=== PATIENT | female | born 2000 | race American Indian/Alaskan Native ===

== ENCOUNTER 2019-10-20 09:12 | Emergency (ER) | payer SELFPAY ==
[2019-10-20 10:14] LABS: Basophils % (Auto) 0.3 % (0.0-1.8); Eosinophils # (Auto) 0.1 K/mm3 (0.0-0.4); Eosinophils % (Auto) 0.7 % (0.0-4.3); Hematocrit 39.4 % (30.3-42.9); Hemoglobin 13.5 gm/dl (10.1-14.3); Lymphocytes # (Auto) 1.5 K/mm3 (1.2-5.4); Lymphocytes % (Auto) 15.7 % (13.4-35.0); Mean Corpuscular HGB Conc 34 % (30-34); Mean Corpuscular Volume 80 fl (79-97); Monocytes # (Auto) 0.6 K/mm3 (0.0-0.8); Monocytes % (Auto) 6.5 % (0.0-7.3); Platelet Count 291 K/mm3 (140-440); Red Blood Count 4.92 M/mm3 (3.65-5.03); Red Cell Distribution Width 13.4 % (13.2-15.2)
--- NOTE | 2019-10-20 11:59 | Ultrasound Report ---
ULTRASOUND OBSTETRIC INDICATION / CLINICAL INFORMATION: pelvic pain and . Clinical Gestational Age (GA): Unknown. Patient has a positive urine test TECHNIQUE: Transabdominal. Transvaginal COMPARISON: None available. FINDINGS: At this time, there is no evidence for a gestational sac within the uterus. Endometrial stripe is of normal thickness measuring 2 mm. The uterus has a normal size and appearance. ADNEXA: Both ovaries are well-visualized. There is a 2.5 cm simple cyst within the left ovary. Both o varies are otherwise unremarkable. No adnexal mass identified. FREE FLUID: None. ADDITIONAL FINDINGS: None. IMPRESSION: 1. No sonographic evidence of IUP at this time. Please correlate with hCG levels as to whether pregna ncy should be visible. It may just be too early within the gestation for sonographic evidence of IUP. 2. 2.5 cm left ovarian simple cyst. Signer Name: Delilah Wilson MD Signed: 10/20/2019 11:55 AM Workstation Name: [id number]
[2019-10-20 13:25] LABS: Bacteria,Urine 1+ /HPF (Negative); Bilirubin,Urine NEG (Negative); Blood,Urine NEG (Negative); Color,Urine Yellow (Yellow); Mucus,Urine FEW /HPF; Protein,Urine <15 mg/dL mg/dL (Negative)
[2019-10-20] MEDS ORDERED: SODIUM CHLORIDE 0.9% 1000 ML 1,000 ML IV ONE ×2 (13:55→14:49)
--- NOTE | 2019-10-20 13:55 | Emergency Department Report ---
ED Female HPI - General Chief complaint: Vaginal Bleeding Stated complaint: BACK/ABD PAIN/FEVER Time Seen by Provider: 10/20/19 10:30 Source: patient Mode of arrival: Ambulatory Limitations: No Limitations - History of Present Illness MD Complaint: vaginal bleeding, pelvic pain -: Gradual Radiation: non-radiating Severity: mild Quality: dull Improves with: none Worsens with: none Are you Now?: No (thinks she had a positive test at home) Associated Symptoms: vaginal bleeding, abdominal pain. denies: fever/chills, dysuria, hematuria, rash, shortness of breath, syncope, weakness - Related Data Sexually active: Yes Allergies Allergy/AdvReac Type Severity Reaction Status Date / Time No Known Allergies Allergy Unverified 10/20/19 09:22 ED Review of Systems ROS: Stated complaint: BACK/ABD PAIN/FEVER Other details as noted in HPI Comment: All other systems reviewed and negative ED Past Medical Hx - Past Medical History Previous Medical History?: Yes Additional medical history: vaginal delivery 11-10-2015 - Surgical History Past Surgical History?: No - Social History Smoking Status: Never Smoker Substance Use Type: None ED Physical Exam - General Limitations: No Limitations General appearance: alert, in no apparent distress - Head Head exam: Present: atraumatic, normocephalic - Eye Eye exam: Present: normal appearance, PERRL, EOMI Pupils: Present: normal accommodation - ENT ENT exam: Present: normal exam, normal orophraynx, mucous membranes moist - Neck Neck exam: Present: normal inspection - Respiratory Respiratory exam: Present: normal lung sounds bilaterally. Absent: respiratory distress - Cardiovascular Cardiovascular Exam: Present: regular rate, normal rhythm. Absent: systolic murmur, diastolic murmur, rubs, gallop - GI/Abdominal GI/Abdominal exam: Present: soft, normal bowel sounds - Extremities Exam Extremities exam: Present: normal inspection, normal capillary refill. Absent: full ROM, tenderness - Back Exam Back exam: Present: normal inspection. Absent: CVA tenderness (R), CVA tenderness (L) - Neurological Exam Neurological exam: Present: alert, oriented X3, CN II-XII intact, normal gait - Psychiatric Psychiatric exam: Present: normal affect, normal mood - Skin Skin exam: Present: warm, dry, intact, normal color. Absent: rash ED Course Vital Signs 02/10/20/19 10/20/19 09:21 13:55 14:50 Temperature 99.6 F Pulse Rate 124 H 117 H 117 H Respiratory 16 18 Rate Blood Pressure 135/73 Blood Pressure 119/66 [Left] O2 Sat by Pulse 100 99 Oximetry 10/20/19 15:39 Temperature Pulse Rate 112 H Respiratory 20 Rate Blood Pressure Blood Pressure [Left] O2 Sat by Pulse 100 Oximetry ED Medical Decision Making - Lab Data Result diagrams: 10/20/19 09:47 - Radiology Data Radiology results: report reviewed Referring Physician:TIFFANIE HAWKPatient Name:ADAM CLARKPatient ID:[id number] of :1802-03-46Ugr:FemaleAccession:[id number] Date: [id number] Status:Finalized Findings [facility] [address] [place] [address] Ultrasound Report Signed Patient: ADAM CLARK MR#: [id number] : 2000 Acct:[id number] Age/Sex: 18 / F ADM Date: 10/20/19 Loc: ED Attending Dr: Ordering Physician: SUNITA MUNOZ Date of Service: 10/20/19 Procedure(s): US OB transvaginal Accession Number(s): [id number] cc: SUNITA MUNOZ ULTRASOUND OBSTETRIC INDICATION / CLINICAL INFORMATION: pelvic pain and . Clinical Gestational Age (GA): Unknown. Patient has a positive urine test TECHNIQUE: Transabdominal. Transvaginal COMPARISON: None available. FINDINGS: At this time, there is no evidence for a gestational sac within the uterus. Endometrial stripe is of normal thickness measuring 2 mm. The uterus has a normal size and appearance. ADNEXA: Both ovaries are well-visualized. There is a 2.5 cm simple cyst within the left ovary. Both ovaries are otherwise unremarkable. No adnexal mass identified. FREE FLUID: None. ADDITIONAL FINDINGS: None. IMPRESSION: 1. No sonographic evidence of IUP at this time. Please correlate with hCG levels as to whether should be visible. It may just be too early within the gestation for sonographic evidence of IUP. 2. 2.5 cm left ovarian simple cyst. Signer Name: Delilah Wilson MD Signed: 10/20/2019 11:55 AM Workstation Name: [id number] Transcribed By: Dictated By: Delilah Wilson MD Electronically Authenticated By: Delilah Wilson MD Signed Date/Time: 10/20/19 1155 DD/ 1151 TD/TT: - Medical Decision Making 18-year-old female was admitted department suspicious of evidence of vaginal bleeding. Ultrasound did not support any nor did her hemoglobin quant. She was tachycardic received 2 L of fluid her heart rate improved to 112 she was asymptomatic was able to ambulate under her own power with no complications. Was very stressed the need to follow-up with [facility] for definitive management and reevaluation. Critical care attestation.: If time is entered above; I have spent that time in minutes in the direct care of this critically ill patient, excluding procedure time. ED Disposition Clinical Impression: Vaginal bleeding, Pelvic pain, Dysmenorrhea, Negative test Disposition: DC- TO HOME OR SELFCARE Is pt being admited?: No Does the pt Need Aspirin: No Condition: Stable Instructions: Dysmenorrhea (ED) Referrals: PRIMARY CAREMD [Primary Care Provider] - 3-5 Days [facility] [Provider Group] - 3-5 Days Forms: Accompanied Note
[2019-10-20] MEDS ORDERED: SODIUM CHLORIDE 0.9% 1000 ML 1,000 ML ONE (13:58)
[2019-10-20 13:59] VITALS: BP 119/66
== END 2019-10-20 15:39 | disposition home or self-care (01) ==
LOC: ED 09:12
DX: N94.6 Dysmenorrhea, unspecified (principal)
CPT/HCPCS: 36415; 76801; 76817; 81001; 84702; 85025; 86900; 86901; 99284; J7030

== ENCOUNTER 2019-12-25 02:15 | Emergency (ER) | payer MEDICAID ==
[2019-12-25 02:25] VITALS: BP 130/65
[2019-12-25] MEDS ORDERED: ACETAMINOPHEN 325 MG TAB ONE (02:30)
[2019-12-25] MEDS ORDERED: ACETAMINOPHEN 325 MG TAB PO ONE (02:30)
--- NOTE | 2019-12-25 04:34 | Emergency Department Report ---
ED HPI - General Chief complaint: Vaginal Bleeding Stated complaint: VAGINAL BLEEDING(5 WKS PREG) Time Seen by Provider: 12/25/19 04:15 Source: patient Mode of arrival: Ambulatory Limitations: No Limitations - History of Present Illness Initial comments: Ms. Thomson is a 19-year-old -[place] female who is G1, , states she is 5 weeks last menstrual cycle was 5 weeks ago. Patient states she started to see some vaginal spotting on yesterday now has progressed to right lower quadrant pain 5/10 intermittent pain is relieved by nothing pain is exacerbated by movement and palpation. There is been no fever, chills, nausea o r vomiting. Patient has [facility] does not have an appointment till next week. States vaginal spotting was light to resolved at this point. There is no low back pain. No sore throat no productive cough. Patient denies suspicious travel no sick contacts.. MD Complaint: abdominal pain, vaginal bleeding Onset/Timin -: days(s) Location: pelvis, abdomen Radiation: RLQ Severity: moderate Severity scale (0 -10): 3 Quality: aching Consistency: constant Improves with: none Worsens with: movement Associated symptoms: dysuria. denies: nausea/vomiting, vaginal bleeding, vaginal discharge, abdominal pain, headache, vision changes, malaise, rash, seizure, shortness of breath, syncope, weakness Vaginal bleeding: light :: Yes Number of weeks : 5 OB History - Current : no complications OB History - Previous Pregnancies: no complications Last menstrual period: 12/26/19 - Related Data Previous Rx's Medication Instructions Recorded Last Taken Type Acetaminophen [Acetaminophen TAB] 1,000 mg PO Q6HR PRN #30 tablet 12/25/19 Unknown Rx Allergies Allergy/AdvReac Type Severity Reaction Status Date / Time No Known Allergies Allergy Unverified 10/20/19 09:22 ED Review of Systems ROS: Stated complaint: VAGINAL BLEEDING(5 WKS PREG) Other details as noted in HPI Constitutional: denies: chills, fever Eyes: denies: eye pain, eye discharge, vision change ENT: denies: ear pain, throat pain Respiratory: denies: cough, shortness of breath, wheezing Cardiovascular: denies: chest pain, palpitations Endocrine: no symptoms reported Gastrointestinal: abdominal pain. denies: nausea, vomiting, diarrhea Genitourinary: denies: urgency, dysuria, discharge Musculoskeletal: denies: as per HPI Skin: denies: rash, lesions Neurological: denies: headache, weakness, paresthesias Psychiatric: as per HPI Hematological/Lymphatic: denies: easy bleeding, easy bruising ED Past Medical Hx - Past Medical History Previous Medical History?: No Additional medical history: vaginal delivery 11-10-2015 - Surgical History Past Surgical History?: No - Social History Smoking Status: Never Smoker Substance Use Type: None - Medications Home Medications: Home Medications Medication Instructions Recorded Confirmed Last Taken Type Acetaminophen [Acetaminophen TAB] 1,000 mg PO Q6HR PRN #30 tablet 12/25/19 Unknown Rx ED Physical Exam - General Limitations: No Limitations General appearance: alert, in no apparent distress - Head Head exam: Present: atraumatic, normocephalic - Eye Eye exam: Present: normal appearance, PERRL, EOMI Pupils: Present: normal accommodation - ENT ENT exam: Present: mucous membranes moist - Neck Neck exam: Present: normal inspection, full ROM. Absent: tenderness, lymphadenopathy - Respiratory Respiratory exam: Present: normal lung sounds bilaterally. Absent: respiratory distress, wheezes, stridor, chest wall tenderness - Cardiovascular Cardiovascular Exam: Present: regular rate, normal rhythm, normal heart sounds. Absent: systolic murmur, diastolic murmur, rubs, gallop - GI/Abdominal GI/Abdominal exam: Present: soft, normal bowel sounds. Absent: distended, tenderness, guarding, rebound, rigid, bruit, hernia - Rectal Rectal exam: Present: deferred - External exam: Present: other (exam deferre per patient to obgyn follow up ) - Extremities Exam Extremities exam: Present: normal inspection - Back Exam Back exam: Present: normal inspection, full ROM. Absent: tenderness, CVA tenderness (R), CVA tenderness (L) - Neurological Exam Neurological exam: Present: alert, oriented X3, CN II-XII intact, normal gait - Psychiatric Psychiatric exam: Present: normal affect, normal mood - Skin Skin exam: Present: warm, dry, intact, normal color. Absent: rash ED Course Vital Signs 12/25/19 02:22 Temperature 98.5 F Pulse Rate 93 H Respiratory 16 Rate Blood Pressure 130/65 O2 Sat by Pulse 100 Oximetry ED Medical Decision Making - Lab Data Result diagrams: 12/25/19 04:35 Labs 12/25/19 04:35 WBC 6.6 RBC 4.56 Hgb 12.3 Hct 37.2 MCV 82 MCH 27 L MCHC 33 RDW 13.8 Plt Count 298 Lymph % (Auto) 33.2 [place] % (Auto) 4.9 Eos % (Auto) 4.1 Baso % (Auto) 0.7 Lymph # 2.2 [place] # 0.3 Eos # 0.3 Baso # 0.0 Seg Neutrophils % 57.1 Seg Neutrophils # 3.8 - Radiology Data Radiology results: report reviewed, image reviewed Findings Reporting MD: Delilah Wilson Dictation Time: December 25, 2019 03:42 Magazine Publisher: Not available Agricultural Research Engineer Date: ULTRASOUND OBSTETRIC INDICATION / CLINICAL INFORMATION: pain with bleeding. Clinical Gestational Age (GA): 5 weeks 5 days TECHNIQUE: Transabdominal. Transvaginal COMPARISON: 10/20/2019 prior ultrasound FINDINGS: The endometrium is thickened measuring 13 mm. The uterus is otherwise normal. There is no gestational sac identified. ADNEXA: Both ovaries are well- visualized. There is a small complex cyst within the left ovary. Both ovaries demonstrate blood flow. No adnexal mass identified. FREE FLUID: Trace free fluid is present in the posterior cul-de-sac. ADDITIONAL FINDINGS: None. IMPRESSION: 1. No gestational sac is identified at this time. Please correlate with hCG levels. Signer Name: Delilah Wilson MD Signed: 12/25/2019 3:42 AM Workstation Name: [id number] - Medical Decision Making US OB: no IUP, h/h 12.7/37.4, hcg <2, dx AUB, plan follow up with OBGYN in 2-3 days return to ed if symptoms worsen , pt verbalized agreement and understanding of discharge plan., pt dc'd to home via pov and family members at this time. Critical care attestation.: If time is entered above; I have spent that time in minutes in the direct care of this critically ill patient, excluding procedure time. ED Disposition Clinical Impression: Abnormal uterine bleeding (AUB) Disposition: DC-01 TO HOME OR SELFCARE Is pt being admited?: No Does the pt Need Aspirin: No Condition: Stable Instructions: Dysmenorrhea (ED) Prescriptions: Acetaminophen [Acetaminophen TAB] 1,000 mg PO Q6HR PRN #30 tablet PRN Reason: pain Referrals: [facility] [Provider Group] - 3-5 Days Forms: Work/School Release Form(ED) Time of Disposition: 05:13
--- NOTE | 2019-12-25 04:46 | Ultrasound Report ---
ULTRASOUND OBSTETRIC INDICATION / CLINICAL INFORMATION: pain with bleeding. Clinical Gestational Age (GA): 5 weeks 5 days TECHNIQUE: Transabdominal. Transvaginal COMPARISON: 10/20/2019 prior ultrasound FINDINGS: The endometrium is thickened measuring 13 mm. The uterus is otherwise normal. There is no gestational sac identified. ADNEXA: Both ovaries are well-visualized. There is a small complex cyst within the left ovary. Both o varies demonstrate blood flow. No adnexal mass identified. FREE FLUID: Trace free fluid is present in the posterior cul-de-sac. ADDITIONAL FINDINGS: None. IMPRESSION: 1. No gestational sac is identified at this time. Please correlate with hCG levels. Signer Name: Delilah Wilson MD Signed: 12/25/2019 4:42 AM Workstation Name: [id number]
[2019-12-25 05:06] LABS: Basophils % (Auto) 0.7 % (0.0-1.8); Eosinophils # (Auto) 0.3 K/mm3 (0.0-0.4); Eosinophils % (Auto) 4.1 % (0.0-4.3); Hematocrit 37.2 % (30.3-42.9); Hemoglobin 12.3 gm/dl (10.1-14.3); Lymphocytes # (Auto) 2.2 K/mm3 (1.2-5.4); Lymphocytes % (Auto) 33.2 % (13.4-35.0); Mean Corpuscular HGB Conc 33 % (30-34); Mean Corpuscular Volume 82 fl (79-97); Monocytes # (Auto) 0.3 K/mm3 (0.0-0.8); Monocytes % (Auto) 4.9 % (0.0-7.3); Platelet Count 298 K/mm3 (140-440); Red Blood Count 4.56 M/mm3 (3.65-5.03); Red Cell Distribution Width 13.8 % (13.2-15.2)
== END 2019-12-25 05:19 | disposition home or self-care (01) ==
LOC: ED 02:15
DX: O46.8X1 Other antepartum hemorrhage, first trimester (principal); Z3A.01 Less than 8 weeks gestation of pregnancy; Z79.899 Other long term (current) drug therapy
CPT/HCPCS: 36415; 76801; 76817; 84702; 85025; 86900; 86901